=== PATIENT | male | born 1955 | race Caucasian/White ===

== ENCOUNTER 2023-10-23 07:11 | Day surgery (SDC) | payer MEDICARE, OTHER, SELFPAY ==
[2023-10-08 10:30] VITALS: BMI 23.7
[2023-10-23 08:28] VITALS: BMI 23.1
[2023-10-23] MEDS: LACTATED RINGERS 1,000 ML 150 ML IV CONT (08:48)
[2023-10-23 08:50] VITALS: BP 119/80; PULSE 46; RESP 16; TEMP 36.3; O2SAT 100
--- NOTE | 2023-10-23 09:15 | P.PNAN_ITS ---
Anes - Initial Pre Proc Eval Procedure: Operation Date: 10/23/23 09:30 Proposed Procedures p Colonoscopy - Noel Wilson MD Date/Time: 10/23/23 09:15 Surgeon: Noel Wilson MD Pre Op Diagnosis: Benign neoplasm of colon Patient Data Age: 68 Gender: M Height: 1.8 m Weight: 75 kg Allergies Allergy/AdvReac Type Severity Reaction Status Date / Time No Known Allergies Allergy Verified 10/23/23 08:25 Home Medications Medication Instructions Recorded Confirmed Type cholecalciferol (vitamin D3) 125 125 mcg PO DAILY 06/03/22 10/23/23 History mcg (5,000 unit) capsule green tea leaf extract 250 mg 500 mg PO .qd 06/03/22 10/23/23 History capsule (Green Tea) [id number] 250 mg-dha 90 1 cap PO DAILY 06/03/22 10/23/23 History mg-epa 160 du-mwmp-rcyn-zeax capsule (Ocuvite Adult 50 Plus) sfmbdxug-yk-wpqbk 300 mcg-K 60 1 tablet PO DAILY 06/03/22 10/23/23 History mcg-lycop 600 mcg-lutein 300 mcg tablet (Centrum Silver Men) vitamin K2 1 tab-cap PO DIRECTED 10/13/23 10/23/23 History Patient hx anesthesia problems: none Family hx anesthesia problems: none Results Review: All pre-operative results and documents have been reviewed as part of the pre- operative evaluation. PMFSH Surgical History Surgical History Hx of hand surgery Rt hand Family History Family History Sibling Family history of malignant neoplasm of breast in first degree relative Father Hypertension Diabetes mellitus Dementia Mother Breast cancer Bone cancer Social History Social History Smoking status: Never smoker Substance use type: does not use Anes - Eval Final PreProcedure Day of Procedure 10/23/23 09:15 Patient weight: normal Heart: regular rate and rhythm Lungs: clear to auscultation Airway: Mallampati scale class II Neurological: alert and oriented Last oral intake: >/= 8 hours ASA classification: III Emergent: no Anesthetic plan: proceed Anesthesia type and monitoring: general GIVS and standard monitoring Results Review: All pre-operative results and documents have been reviewed as part of the pre- operative evaluation. Informed Consent: The patient's anesthetic plan and its attendant risks and benefits were discussed with the patient/family/POA. Questions were solicited and answers provided to the satisfaction of the patient/family/POA.
--- NOTE | 2023-10-23 09:18 | PM.HPGS ---
History of Present Illness History of Present Illness Consent: Risks, benefits, and alternatives have been discussed and questions answered. Patient agrees to proceed with procedure. Chief complaint: history of colon polyps Narrative: Barry Noyola is a 68 year old male presents for screening colonoscopy. Patient's current weight appetite and bowel movements are normal. He denies abdominal pain. Patient has had no bleeding. Two adenomatous polyps removed from the colon 1018. Patient returns today for screening colonoscopy. Review of Systems Review of Systems: Review of systems noncontributory. PMFSH Surgical History Surgical History Hx of hand surgery Rt hand Family History Family History Sibling Family history of malignant neoplasm of breast in first degree relative Father Hypertension Diabetes mellitus Dementia Mother Breast cancer Bone cancer Social History Social History Smoking status: Never smoker Substance use type: does not use Meds Home Medications and Allergies Home Medications Medication Instructions Recorded Confirmed Type cholecalciferol (vitamin D3) 125 125 mcg PO DAILY 06/03/22 10/23/23 History mcg (5,000 unit) capsule green tea leaf extract 250 mg 500 mg PO .qd 06/03/22 10/23/23 History capsule (Green Tea) zbmllbnq-eux-ifpcu8 250 mg-dha 90 1 cap PO DAILY 06/03/22 10/23/23 History mg-epa 160 af-drry-pamx-zeax capsule (Ocuvite Adult 50 Plus) xuscerze-nt-wbdzz 300 mcg-K 60 1 tablet PO DAILY 06/03/22 10/23/23 History mcg-lycop 600 mcg-lutein 300 mcg tablet (Centrum Silver Men) vitamin K2 1 tab-cap PO DIRECTED 10/13/23 10/23/23 History Allergies Allergy/AdvReac Type Severity Reaction Status Date / Time No Known Allergies Allergy Verified 10/23/23 08:25 Exam Narrative: Physical exam reveals patient to be alert. Vital signs stable. HEENT exam is unremarkable. Patient is anicteric. Lungs are clear to auscultation and percussion. Heart is without murmur or extra sounds. Abdomen bowel sounds are present soft nontender with no organomegaly. Digital external rectal exam is normal. Assessment and Plan Assessment and plan (1) History of colon polyps: Code(s): Z86.010 - Personal history of colonic polyps Status: Acute Assessment and Plan: History of colon polyps. Plan for surveillance colonoscopy at 5 year intervals. Additional recommendations may be given after endoscopy.
[2023-10-23 10:15] VITALS: BP 98/51; PULSE 60; RESP 18; O2SAT 98
[2023-10-23 10:25] VITALS: BP 104/69; PULSE 58; RESP 16; O2SAT 98
[2023-10-23 10:35] VITALS: BP 116/69; PULSE 50; RESP 17; O2SAT 100
--- NOTE | 2023-10-23 11:39 | WPDANESPN ---
Anes - Prog Note Post-Op Date/Time: 10/23/23 11:39 Cardiovascular status: normal Respiratory status: normal Airway patency: baseline Mental status: baseline Post-Op hydration status: normal Vital Signs: Last Vital Signs Temp 36.3 C L 10/23/23 08:50 Pulse 50 L 10/23/23 10:35 Resp 17 10/23/23 10:35 BP 116/69 10/23/23 10:35 Pulse Ox 100 10/23/23 10:35 O2 Del Method Room Air 10/23/23 10:35 Pain Score (VAS): 0 I/O: Intake & Output 10/22/23 10/23/23 10/23/23 23:59 07:59 15:59 Intake Total 800 Balance 800 Patient Feedback: Patient satisfied with anesthetic care.
== END 2023-10-23 10:55 | disposition home or self-care (01) ==
PROVIDERS: PCP Family Medicine Adolescent Medicine; Visit Provider Internal Medicine Gastroenterology
PROC: 0DJD8ZZ Inspection of Lower Intestinal Tract, Via Natural or Artificial Opening Endoscopic (ICD-10-PCS; CPT 45378; principal; 2023-10-23 09:30)
DX: Z86.010 Personal history of colon polyps (principal); D12.0 Benign neoplasm of cecum; K64.8 Other hemorrhoids
CPT/HCPCS: 45385

== ENCOUNTER 2023-10-23 08:01 | Outpatient (NON) | payer MEDICARE, OTHER, SELFPAY | END 2023-10-23 08:02 | disposition home or self-care (01) | PROVIDERS: PCP Family Medicine Adolescent Medicine; Visit Provider Internal Medicine Gastroenterology | DX: Z86.010 Personal history of colon polyps (principal) | CPT/HCPCS: 88305 ==

== ENCOUNTER 2024-09-22 02:13 | Day surgery (SDC) | payer MEDICARE, OTHER, SELFPAY ==
[2024-09-17 08:16] VITALS: BMI 23.6
--- NOTE | 2024-09-17 08:24 | PC.NURSE ---
Report to the Outpatient Waiting Room, entrance under the green pavilion located off [facility], at time __11:00am on date _09/22/24 . Planned Procedure Time: __1:00pm .? Time changes happen often and if your time is changed the preop area will call you the afternoon before. - You and your visitor will be asked to self-screen and do not enter if you have any COVID symptoms. Please call surgeon if you need to reschedule. - A mask is optional within the hospital at this time. Patients may have clear liquids (water, carbonated beverages, clear teas, apple juice) until 3 hours prior to surgery with a maximum of 20 ounces. - No food from midnight until time of surgery and no smoking. This includes no chewing gum, candy or mints. (1000am) Take only the following medications with a SIP of water on the morning of surgery: None DO NOT STOP ANY OF YOUR OTHER PRESCRIPTION MEDICATIONS PRIOR TO SURGERY EXCEPT THE FOLLOWING Medications to discontinue per physician All Multivitamins and supplements for 3 days prior per Anesthesia Date to take last dose 09/18/24 Please no make-up, nail swedish, hairspray, perfume, deodorant, or body powder the day of surgery.? No jewelry (including any body piercings) or valuables the day of surgery, leave them at home.? Please take a shower or bath the night before, or the morning of, surgery with an antibacterial soap.? Wear comfortable, loose fitting clothing.? - Jewelry must be removed prior to entering the operating room.? Rings and piercings that are not removed may be cut off. - The hospital will not accept responsibility for valuables.? - Please leave all valuables, including medications, at home the day of surgery. If you are going home after surgery, a licensed semi truck driver must drive you home.? - NO public transportation without another adult if you receive anesthesia. - We recommend that an adult stay with you for 24 hours following discharge. - We also recommend that you do not drive, make important decision, drink alcoholic beverages, or take any drugs that were not prescribed by your health care provider for at least 24 hours after your discharge time. Follow any additional instructions given to you from your surgeon. Telephone instructions given to _Patient and asked if any additional questions and then verbalized understanding. Patient advised to call surgeon office or pre surgery nurse liaison [phone] if any additional questions.
--- NOTE | 2024-09-21 16:11 | P.SS_ITS ---
Same Day Admit/Disch: HPI History of Present Illness Chief complaint: Bilateral Inguinal Hernia Narrative: Barry Noyola is a 69 year old male Who noticed bulges in both groins last April. Each of these can be uncomfortable but are really never painful. He was seen in the office and found to have bilateral reducible inguinal hernias. He is taken to surgery now for robotic laparoscopic repair of bilateral inguinal hernias. PMFSH Past Medical History Medical History Arthritis Surgical History Surgical History Hx of hand surgery Rt hand Family History Family History Sibling Family history of malignant neoplasm of breast in first degree relative Father Hypertension Diabetes mellitus Dementia Cerebrovascular accident Mother Breast cancer Bone cancer Social History Social History Smoking status: Never smoker Substance use type: does not use Same Day Admit/Disch: Med Pre-admit Medications Home Medications ?Medication ?Instructions ?Recorded ?Confirmed ?Type green tea leaf extract 250 mg 500 mg PO .qd 06/03/22 09/22/24 History capsule (Green Tea) wnwkhthe-bk-qdoum 300 mcg-K 60 1 tablet PO DAILY 06/03/22 09/22/24 History mcg-lycop 600 mcg-lutein 300 mcg tablet (Centrum Silver Men) turmeric 400 mg capsule 400 mg PO DAILY 06/23/24 09/22/24 History ibuprofen 600 mg tablet 600 mg PO Q6H PRN pain #14 tabs 09/22/24 Rx oxycodone-acetaminophen 5 mg-325 0.5 - 1 tablet PO Q4H PRN pain #10 09/22/24 Rx mg tablet (Percocet) tabs Review of Systems Review of Systems All systems reviewed & are unremarkable except as noted in HPI and below ( HPI) Exam Const: General: comfortable, no acute distress, alert and awake HENMT: Head: normocephalic and atraumatic Mouth: Yes Normal oral and palatal mucosa present Eyes: Conjunctivae: conjunctivae normal Pupils: Equal, round and reactive pupils present EOM: EOMs intact bilaterally Neck: Neck: normal visual inspection, no lymphadenopathy and nontender Resp: Effort & Inspection: normal respiratory effort Auscultation: clear to auscultation bilaterally Cardio: Rate: regular rate Rhythm: regular rhythm Heart sounds: no gallops, no murmurs and no rubs GI: Inspection: non-distended GI Palp: Yes Soft to palpation, No Tenderness to palpation present (GI), No Hepatomegaly present and No Splenomegaly present : Male General Exam: Yes hernia ( bilateral reducible inguinal hernias, right side larger than left) Penis: Yes normal penis Scrotum: scrotum normal Testes: Testes normal Skin: Lesions: no lesions Rashes: no rashes Neuro: General: no focal motor deficits and CN's II-XI intact bilaterally Cranial nerves: Yes Equal, round and reactive pupils present, Yes Bilaterally intact EOM present, Yes facial symmetry and Yes Midline tongue present Speech: normal speech Motor exam (neuro): 5/5 motor strength present throughout and Motor abnormalities not present Extrem: General: no clubbing, cyanosis or edema and edema Psych: Affect: normal affect Thought process: Normal thought process present Insight: Good insight present (Psych) DS: Summary Time Spent with Patient Time attestation: Total time spent providing and/or coordinating discharge services: DS: Admitting Diagnosis Discharge Date 09/22/2024 Admitting Diagnosis * bilateral inguinal hernias- plan to proceed with robotic laparoscopic repair with mesh. The procedure, risks, benefits, alternatives have been discussed. The usual length of the surgery and length of recovery have been discussed. All questions were answered. Patient understands and agrees to go ahead. DS: Discharge Diagnosis Discharge Diagnosis (1) Bilateral inguinal hernia without obstruction or gangrene: Qualifiers: Recurrence: non-recurrent Qualified Code(s): K40.20 - Bilateral inguinal hernia, without obstruction or gangrene, not specified as recurrent Code(s): K40.20 - Bilateral inguinal hernia, without obstruction or gangrene, not specified as recurrent Status: Chronic Assessment and Plan: Robotic laparoscopic repair bilateral inguinal hernias with mesh performed 09/22/[address] Navarro Discharge Plan Discharge Patient Disposition: Home, Self-Care Discharge Instructions: 1. May shower the day after surgery over incisions. 2. Call office for: -Wound increasingly painful or bleeding -Vomiting -Fever of greater than 101 degrees 3. Wear scrotal support at all times except when showering or sleeping for 1 week 4. If no bowel movement for three days, take 1 oz. (30 ml) Milk of Magnesia, if no results, take Fleets enema. 5. No heavy lifting > 15-20 pounds for 2 weeks. 6. No driving for 3 days or while taking narcotic pain medications. 7. Up walking 10-30 minutes three times per day. 8. Resume previous home medications. 9. Follow-up 10-14 days in office for wound check or as previously scheduled. 10. Oral pain medications prescription to be sent home with patient. 11. NUTRITION: Start out by drinking fluids and increase your diet as tolerated. If you experience nausea, try dry toast, crackers, and 7-UP. If nausea or vomiting persists, contact your surgeon?s office. Patient Language: Uzbek Stand Alone Forms: General Discharge Instructions Follow-up/Referrals: Isidro Navarro MD [Physician] - 3 Weeks Discharge Medications: New oxycodone-acetaminophen [Percocet] 5-325 mg tablet 0.5 - 1 tablet PO Q4H PRN (Reason: pain) Qty: 10 0RF ibuprofen 600 mg tablet 600 mg PO Q6H PRN (Reason: pain) Qty: 14 0RF Continued turmeric 400 mg capsule 400 mg PO DAILY green tea leaf extract [Green Tea] 250 mg capsule 500 mg PO .qd Centrum Silver Men 300-600-300 mcg tablet 1 tablet PO DAILY
[2024-09-22] VITALS (11 sets, daily range): BP systolic 108–145; BP diastolic 53–77; PULSE 54–80; RESP 12–18; TEMP 36.3–36.4; O2SAT 93–100; BMI 24.3
--- OUTSIDE RECORDS SUMMARY | 2024-09-22 02:16 | XMS_ITS | Continuity of Care Document ---
Author Organization [facility] Address [id number] [place] [address] [place] [address] Phone Care Team Providers Care Radiology Special Procedure Tech Name Role Phone Rolando Marie Unavailable Unavailable Advance Directives Directive Yes / No Effective Date File Name No Information Encounters Encounter Description Practice Location Reason(s) For Visit Diagnoses Date Provider Providers Copied on Encounter [facility], [address] [place], [place], [id number], [place] tel:[phone] [facility] No Information Cynthia Marshall. [address] [place], [address], [place]. tel:[phone] Family History Family Member Type Diagnosis Age At Onset No Information Payers Payer name Insurance type Covered republican ID Shanika narayan(s) [facility] CI [id number] Social History Type Description Quantity Date Captured Comments Sex Male Smoking Status No Information Chief Complaint And Reason For Visit No Information Reason For Referral Reason For Referral No Information History Of Present Illness Encounter Date Complaint History Of Prese nt Illness No Information Functional Status Date Functional Assessmen t No Information Instructions Date Instruction Additional Infor mation No Information Assessments Type Assessment Date No Information Patient Care Teams Name Effective Dates (start - stop) Status Members No Information
--- NOTE | 2024-09-22 08:59 | WPDHPUPDATE1 ---
History and Physical Update Update Date/Time: 09/22/24 08:59 History and Physical has been reviewed, including an updated exam of the patient. There are NO changes in the patient's condition. Risks, benefits, and alternatives have been discussed and questions answered. Patient agrees to proceed with procedure.
[2024-09-22] MEDS: LACTATED RINGERS 1,000 ML 30 ML IV CONT ×2 (11:30→15:03)
[2024-09-22] MEDS: KETOROLAC 15 MG/ML VIAL (*BKC) IV PUSH (11:37)
[2024-09-22] MEDS: ACETAMINOPHEN 500 MG TABLET 1000 MG PO (11:37)
--- NOTE | 2024-09-22 12:01 | P.PNAN_ITS ---
Anes - Initial Pre Proc Eval Procedure: Operation Date: 09/22/24 13:00 Proposed Procedures p Robotic Laparoscopic Bilateral Inguinal Hernia Repair with Mesh - Isidro Navarro MD Date/Time: 09/22/24 12:01 Surgeon: Isidro Navarro MD Pre Op Diagnosis: Bilateral Inguinal Hernia Patient Data Age: 69 Gender: M Height: 1.8 m Weight: 79.2 kg Last Vital Signs Temp 36.3 C L 09/22/24 11:00 Pulse 57 L 09/22/24 11:00 Resp 16 09/22/24 11:00 BP 133/77 09/22/24 11:00 Pulse Ox 100 09/22/24 11:00 O2 Del Method Room Air 09/22/24 11:00 Allergies Allergy/AdvReac Type Severity Reaction Status Date / Time No Known Allergies Allergy Verified 09/22/24 11:45 Home Medications ?Medication ?Instructions ?Recorded ?Confirmed ?Type green tea leaf extract 250 mg 500 mg PO .qd 06/03/22 09/22/24 History capsule (Green Tea) jexsqvze-eo-rzifv 300 mcg-K 60 1 tablet PO DAILY 06/03/22 09/22/24 History mcg-lycop 600 mcg-lutein 300 mcg tablet (Centrum Silver Men) turmeric 400 mg capsule 400 mg PO DAILY 06/23/24 09/22/24 History Laboratory Tests 09/22/24 11:21 Blood Type Pending Antibody Screen Pending Patient hx anesthesia problems: none Family hx anesthesia problems: none Results Review: All pre-operative results and documents have been reviewed as part of the pre- operative evaluation. PMFSH Past Medical History Medical History Arthritis Surgical History Surgical History Hx of hand surgery Rt hand Family History Family History Sibling Family history of malignant neoplasm of breast in first degree relative Father Hypertension Diabetes mellitus Dementia Cerebrovascular accident Mother Breast cancer Bone cancer Social History Social History Smoking status: Never smoker Substance use type: does not use Anes - Eval Final PreProcedure Day of Procedure 09/22/24 12:01 Patient weight: normal Heart: regular rate and rhythm Lungs: clear to auscultation Airway: Mallampati scale class II Neurological: alert and oriented Last oral intake: >/= 8 hours ASA classification: II Emergent: no Anesthetic plan: proceed Anesthesia type and monitoring: general ETT and standard monitoring Results Review: All pre-operative results and documents have been reviewed as part of the pre- operative evaluation. Informed Consent: The patient's anesthetic plan and its attendant risks and benefits were discussed with the patient/family/POA. Questions were solicited and answers provided to the satisfaction of the patient/family/POA.
[2024-09-22] MEDS: ceFAZolin 2 GM/D5W 50 ML 2 GM/50 ML BAG IVPB (12:25)
[2024-09-22] MEDS: BUPIVACAINE/EPINEPHRINE 0.5% 30 ML VIAL INFILTRATE (13:31)
--- NOTE | 2024-09-22 14:57 | W.PM.PROC2 ---
Procedure Note - Detailed Date of Procedure 09/22/24 Pre-op Diagnosis Bilateral Inguinal Hernia Post-op Diagnosis Same Procedure Performed Robotic laparoscopic repair bilateral inguinal hernias with mesh Surgeon Isidro Navarro MD Casing Soaker Cate Chow [facility] Anesthesia General and Local Indications Last fall patient noticed bilateral inguinal bulges that were painful with coughing or heavy lifting. He was seen in the office and found to have bilateral inguinal hernias, right was larger than left. After discussion, he is taken to surgery now for robotic laparoscopic repair with mesh Findings Right-sided hernia was a direct hernia, left-sided hernia was an indirect hernia. Both hernias had a sizable plug of fat in the femoral canal. Description of Procedure Patient was taken to surgery and induced into general anesthesia. The abdomen is prepped and draped. Trocars were placed in usual fashion starting with a 5 mm applied Medical optical trocar in the left upper abdomen. The robotic trocars were then placed under direct visualization and the 5 mm port was changed out for another 8 mm robotic port. Patient was placed in Trendelenburg. The robotic arms were brought in and the camera was docked and targeted. We then docked the operating arms and positioned instruments near the pelvis. The surgeon then broke scrub and went to the robotic console. I started on the right side making it lateral peritoneal incision just above the inguinal canal. This was extended from lateral to medial stopping at the median umbilical ligament. This peritoneal flap was then developed posteriorly dissecting widely. Medially the dissection was carried directly under the rectus muscle until we came down on to the pubis and Tanner's ligament. Some dissection was carried out medial beyond the midline a couple of cm. We then dissected Tanner's ligament and a couple of cm posterior to that. The lateral dissection was carried out and then dissection was carried out the in the area of the indirect space. We dissected carefully the cord structures and looked for an indirect hernia. None was seen. There was some lipomatous tissue in the indirect space which was removed. There was also a large plug fat in the femoral canal which was reduced and dissected away, eventually removed. The peritoneum was carefully dissected from the cord structures at least 4 cm posterior to the lower margin of the hernia. I then looked at the hernia defect and dissected the transversalis fascia off the peritoneum and continued that dissection posteriorly as well. The hernia actually extended laterally past the inferior epigastric vessels. The hernia defect was delineated throughout its circumference. I then dissected the extreme lateral and medial aspects to have ample room for mesh placement. We turned our attention then to the patient's left side. In similar fashion a lateral peritoneal opening was made and extended just above the inguinal canal structures. A peritoneal flap was again created dissecting broadly and posteriorly. Dissection medially a was right under the left rectus muscle and the space communicated with that created from the right-sided dissection. A pubis and Tanner's ligament were again exposed. Laterally the peritoneum was dissected off the lateral inguinal wall. There was an indirect hernia on the left side. We reduced this and divided the transversalis fibers. The peritoneum and hernia sac were then carefully dissected off the cord structures and the dissection was carried posteriorly so there was at least 4 cm posterior to the hernia defect of the peritoneum reflection. Further dissection on the more lateral portion of Tanner's ligament showed a plug of fat in the femoral canal which was carefully dissected and removed. Some other lipomatous tissue in this area was removed. All looked good at this point. A right and a left extra-large mid 3DMax mesh pieces were then brought into the peritoneal cavity. Two 3 0 V lock sutures were introduced as were two 3-0 Vicryl sutures. I then positioned the left-sided mesh. I sutured the mesh to Tanner's ligament and also placed anterior sutures to the abdominal wall on either side of the inferior epigastric vessels. The mesh lay nicely and was flush with the anterior abdominal wall. I then looked to the right side and, in similar fashion, placed the right-sided 3DMax mesh in the appropriate position. It did overlap medially with the left-sided mesh as expected. I also sutured the mesh to Tanner's ligament with a 3-0 Vicryl. Two other 3-0 Vicryl sutures were then used to suture the mesh to the anterior abdominal wall with these 2 sutures being placed on each side of the inferior epigastric vessels. Both pieces of mesh now looked to be in good position. I used 1 of the V lock sutures and started on the peritoneum on the left side. In running fashion I closed the peritoneum from lateral to medial. I then used the other V lock suture and closed the right-sided peritoneal flap also from lateral to medial. There was a hole on the right-sided flap which I closed with 3-0 Vicryl suture. We then removed all for the needles that were present. Both sides of hernia repair were inspected and looked good. We then removed the instruments and undocked the robot. CO2 was evacuated from the abdominal cavity. The trocars were removed and skin wounds were closed with subcuticular 4-0 Monocryl skin suture. The wounds were dressed with Exofin surgical adhesive. A scrotal support was placed The patient was then awakened and taken to recovery in good condition. Sponge needle counts were correct x2. Implants Extra-large, 17 x 12 cm right-sided mid 3DMax mesh. Extra-large 17 x 12 cm left-sided mid 3DMax mesh Estimated Blood Loss -20 Drains No Packing No Pathology None sent Complications None Condition Stable Disposition PACU [facility] Billing Surgery - Charge Forward: Surgery Billing (Robotic laparoscopic repair bilateral inguinal hernias with mesh)
[2024-09-22] MEDS: fentaNYL CITRATE INJ (*CRX) 100 MCG/2 ML VIAL 25 MCG IV PUSH ×5 (15:37→15:52)
[2024-09-22] MEDS: MIDAZOLAM HCL (*CRX) 2 MG/2 ML VIAL 1 MG IV PUSH (16:10)
== END 2024-09-22 17:30 | disposition home or self-care (01) ==
PROVIDERS: PCP Family Medicine Adolescent Medicine; Visit Provider Surgery
PROC: 8E0Y4CZ Robotic Assisted Procedure of Lower Extremity, Percutaneous Endoscopic Approach (ICD-10-PCS; CPT 49650; principal; 2024-09-22 13:00)
DX: K40.20 Bilateral inguinal hernia, without obstruction or gangrene, not specified as recurrent (principal); G89.18 Other acute postprocedural pain; M19.90 Unspecified osteoarthritis, unspecified site; Z79.1 Long term (current) use of non-steroidal anti-inflammatories (NSAID); Z79.891 Long term (current) use of opiate analgesic; Z98.890 Other specified postprocedural states; Z80.3 Family history of malignant neoplasm of breast; Z80.8 Family history of malignant neoplasm of other organs or systems; Z82.49 Family history of ischemic heart disease and other diseases of the circulatory system
CPT/HCPCS: 49650; S2900; 36415; 86850; 86900; 86901; A9270; C1781; J0690; J1100; J1885; J2250; J2405; J2704; J3010; J7120